=== PATIENT | male | born 1980 | race Caucasian/White ===

== ENCOUNTER 2019-12-24 04:32 | Emergency (ER) | payer SELFPAY ==
[2019-12-24 04:44] VITALS: BP 149/88; PULSE 61
[2019-12-24] MEDS ORDERED: Acetaminophen/HYDROcodone 325-5 MG Tab PO ONE (05:07)
[2019-12-24] MEDS ORDERED: Penicillin V Potassium 500 MG Tab PO STA (05:07)
--- NOTE | 2019-12-24 05:13 | EDM.PDOC ---
ED HPI GENERAL MEDICAL PROBLEM - General Chief Complaint: ENT Problem Stated Complaint: TOOTHACHE Time Seen by Provider: 12/24/19 04:53 Source of Information: Reports: Patient, Significant Other (Girlfriend) History Limitations: Reports: No Limitations - History of Present Illness INITIAL COMMENTS - FREE TEXT/NARRATIVE: Mr. Toussaint is a pleasant 39-year-old man who states that he broke a lower right tooth at least 6 months ago, however, he has not seen a dentist about it as yet , and does not currently have a dentist appointment made. He now presents to the ED stating that he has had increased pain in that area for the past few days , and possible swelling to the lower right side of his face since last night. No recent fever. No recent oral drainage. Here in the ED, the patient is found to be afebrile. The patient states that he has been taking ibuprofen 800 mg up to every 4 hours , without adequate treatment of his pain. Both he and his girlfriend are requesting pain medication. The patient does not have a PCP. He did not receive an influenza vaccine this season, and declined an offer to receive one here today. 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 Right Lower Tooth/Teeth Pain Score (Numeric/FACES): 10 - Related Data Allergies Allergy/AdvReac Type Severity Reaction Status Date / Time No Known Allergies Allergy Verified 10/03/18 22:23 Home Meds: Home Meds Acetaminophen/HYDROcodone [[place] 325-5 MG] 1 - 2 tab PO Q6H PRN #20 tablet 12/23 [Rx] Penicillin V Potassium 1 tab PO Q6HR #40 tab 12/24/19 [Rx] Past Medical History Respiratory History: Reports: Asthma (as a child) Musculoskeletal History: Reports: Back Pain, Chronic (DDD) - Past Surgical History HEENT Surgical History: Reports: Oral Surgery (wisdom teeth extraction) Neurological Surgical History: Reports: Lumbar Spine (microdiscectomy x 2) Social & Family History - Family History Family Medical History: Noncontributory - Tobacco Use Smoking Status *Q: Current Every Day Smoker Years of Tobacco use: 24 Packs/Tins Daily: 1 - Caffeine Use Caffeine Use: Reports: Coffee - Alcohol Use Alcohol Use History: No - Recreational Drug Use Recreational Drug Use: Yes Drug Use in Last 12 Months: Yes Recreational Drug Type: Reports: Marijuana/Hashish (last smoked Jun 2019) - Living Situation & Occupation Living situation: Reports: , with Significant Other (Fiance) 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 ED EXAM, ENT - Physical Exam Exam: See Below Exam Limited By: No Limitations General Appearance: Alert, WD/WN, No Apparent Distress Eye Exam: Bilateral Eye: EOMI, Normal Inspection Ears: Normal External Exam, Normal Canal, Hearing Grossly Normal, Normal TMs Nose: Normal Inspection, Normal Mucousa, No Blood Mouth/Throat: Normal Lips, Normal Oropharynx, Other (Teeth #1, 2 absent. Tooth #4 with advanced decay to the gingiva. Teeth #13, 14, 15, 16 absent, with a hole in the gingiva exposing the maxilla. Teeth numbers 17, 18 absent. Teeth # 19, 20 with crowns. Tooth #21 with metallic filling. Tooth #28, (a tooth of concern) with posterior advanced decay. Tooth #29 (a tooth of concern) with advanced decay to the gingiva. No significant associated gingival swelling, and no drainage or pointing. Tooth #30 with crown. Tooth #31, 32 absent.) Head: Atraumatic, Normocephalic Neck: Normal Inspection, Supple, Non-Tender, Full Range of Motion. No: Lymphadenopathy (L), Lymphadenopathy (R) Course - Vital Signs Last Recorded V/S: Last Vital Signs Temp 36.7 C 12/24/19 04:39 Pulse 61 12/24/19 04:39 Resp 16 12/24/19 04:39 BP 149/88 H 12/24/19 04:39 Pulse Ox 98 12/24/19 04:39 - Orders/Labs/Meds Orders: Active Orders 24 hr Category Date Time Status Acetaminophen/HYDROcodone [[place] 325-5 MG] Med 12/24/19 05:07 Once 2 tab PO ONETIME ONE Penicillin V Potassium [Veetids] Med 12/24/19 05:07 Stat 500 mg PO ONETIME STA Medication Orders Hydrocodone Bitart/Acetaminophen ([place] 325-5 Mg) 2 tab PO ONETIME ONE Stop: 12/24/19 05:08 Penicillin V Potassium (Veetids) 500 mg PO ONETIME STA Stop: 12/24/19 05:08 Meds: Medications Generic Name Dose Route Start Last Admin Trade Name Freq PRN Reason Stop Dose Admin Hydrocodone Bitart/Acetaminophen 2 tab 12/24/19 05:07 [place] 325-5 Mg PO 12/24/19 05:08 ONETIME ONE Penicillin V Potassium 500 mg 12/24/19 05:07 Veetids PO 12/24/19 05:08 ONETIME STA - Re-Assessments/Exams Free Text/Narrative Re-Assessment/Exam: 12/24/19 05:08 The patient has generally poor dentition, including advanced decay of tooth #4, absence of teeth #13 through 16 with exposure of his maxilla, and advanced decay of teeth #28 and 29. I see no direct evidence of a dental infection, although I will start him on some penicillin, as he is certainly at risk for infection. His main purpose, and that of his girlfriend, appears to be to get some pain medication. I will therefore start him on [place] and prescribe the same. 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 Departure - Departure Time of Disposition: 05:11 Disposition: Home, Self-Care 01 Condition: Good Clinical Impression: Dentalgia, Dental infection - Discharge Information *PRESCRIPTION DRUG MONITORING PROGRAM REVIEWED*: No *COPY OF PRESCRIPTION DRUG MONITORING REPORT IN PATIENT KIRSTEN: No Prescriptions: Penicillin V Potassium 1 tab PO Q6HR #40 tab Acetaminophen/HYDROcodone [[place] 325-5 MG] 1 - 2 tab PO Q6H PRN #20 tablet PRN Reason: Pain (Severe 7-10) Referrals: PCP,None [Primary Care Provider] - Forms: ED Department Discharge, ED Return to Work/School Form Additional Instructions: You were seen in the emergency room for lower right dental pain. On examination, you have advanced decay of teeth #28 and 29, as well as advanced decay of tooth #4, and exposure of your maxilla under your upper left gingiva. No obvious infection was found, but because of risk for infection, you have been started on the antibiotic penicillin, and a prescription for penicillin has been provided to you. Take 1 tablet of penicillin every 6 hours, as prescribed. Finish the entire prescription unless told otherwise by a dentist. For pain, we recommend that you take 3 tablets (600 mg) of [id number] ibuprofen every 8 hours, [id number]. In addition, you have been started on the narcotic pain reliever [place], and a prescription for [place]town has been provided to you. You may take 1 to 2 tablets of [place] up to every 6 hours, as needed for pain not relieved by ibuprofen. Because you will not be able to drive while taking [place], a note for work is been provided to you. It is very important that you follow-up with a dentist within the next 10 days. A list of local dentist has been provided to you. Sepsis Event Note - Evaluation Sepsis Screening Result: No Definite Risk - Focused Exam Vital Signs: Vital Signs Temp Pulse Resp BP Pulse Ox 12/24/19 04:39 36.7 C 61 16 149/88 H 98 Date Exam was Performed: 12/24/19 Time Exam was Performed: 05:08 - My Orders Last 24 Hours: My Active Orders 12/24/19 05:07 Acetaminophen/HYDROcodone [[place] 325-5 MG] 2 tab PO ONETIME ONE Penicillin V Potassium [Veetids] 500 mg PO ONETIME STA - Assessment/Plan Last 24 Hours: My Active Orders 12/24/19 05:07 Acetaminophen/HYDROcodone [[place] 325-5 MG] 2 tab PO ONETIME ONE Penicillin V Potassium [Veetids] 500 mg PO ONETIME STA
== END 2019-12-24 05:31 | disposition home or self-care (01) ==
LOC: JD.ED 04:32
DX: K04.7 Periapical abscess without sinus (principal); J45.909 Unspecified asthma, uncomplicated; F17.210 Nicotine dependence, cigarettes, uncomplicated
CPT/HCPCS: 99282; A9270; 99283

== ENCOUNTER 2022-07-05 23:55 | Emergency (ER) | payer OTHER ==
[2022-07-05] MEDS ORDERED: LORazepam 2 MG/ML SDV IVPUSH ONE (23:58)
[2022-07-05] MEDS ORDERED: Glucagon,Human Recombinant 1 MG Vial IVPUSH ONE (23:58)
[2022-07-05] MEDS ORDERED: Sodium Chloride 0.9% 10 ML Syringe FLUSH PRN (23:58)
[2022-07-06] MEDS ORDERED: diphenhydrAMINE 50 MG/ML SDV IVPUSH ONE (00:44)
[2022-07-06] MEDS ORDERED: Metoclopramide 10 MG/2 ML SDV IVPUSH ONE (00:44)
[2022-07-06 03:56] VITALS: PULSE 78
[2022-07-06 04:18] VITALS: BP 113/72
== END 2022-07-06 02:30 | disposition home or self-care (01) ==
LOC: JD.ED 23:55
DX: T18.128A Food in esophagus causing other injury, initial encounter (principal)
CPT/HCPCS: 71046; 96374; 96375; 99283; J1200; J1610; J2060; J2765; J3490

== ENCOUNTER 2023-05-24 01:56 | Emergency (ER) | payer MEDICAID, OTHER ==
[2023-05-24] MEDS ORDERED: Lidocaine 1% 10 ML MDV INJECT ONE (03:20)
[2023-05-24] MEDS ORDERED: Diphtheria,Pertussis(Acell),Tetanus Vaccine 0.5 ML Syringe IM ONE (03:20)
[2023-05-24] MEDS ORDERED: Bupivacaine 0.5%/EPINEPHrine 1:200,000 30 ML SDV INJECT ONE (03:33)
[2023-05-24 04:09] VITALS: BP 123/80; PULSE 80
== END 2023-05-24 03:49 | disposition home or self-care (01) ==
LOC: JD.ED 01:56
DX: S61.031A Puncture wound without foreign body of right thumb without damage to nail, initial encounter (principal); F17.210 Nicotine dependence, cigarettes, uncomplicated; J45.909 Unspecified asthma, uncomplicated; Z23 Encounter for immunization; W45.8XXA Other foreign body or object entering through skin, initial encounter
CPT/HCPCS: 64450; 90471; 90715; 99282; J3490